=== PATIENT | male | born 1960 | race Caucasian/White ===

== ENCOUNTER 2020-06-16 16:17 | Emergency (ER) | payer OTHER ==
[2020-06-16 16:31] VITALS: BP 129/94; PULSE 78; TEMP 98.1; BMI 29.8
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
[2020-06-16] MEDS ORDERED: IBUPROFEN 400 MG TABLET (FP) PO ONE ×2 (18:17→18:25)
== END 2020-06-16 18:57 | disposition home or self-care (01) ==
LOC: JER 16:17 → JERFT 16:17
DX: G44.319 Acute post-traumatic headache, not intractable (principal); S43.402A Unspecified sprain of left shoulder joint, initial encounter; S83.92XA Sprain of unspecified site of left knee, initial encounter; S80.212A Abrasion, left knee, initial encounter
CPT/HCPCS: 70450-TC; 73030-TC-LT-FY; 73562-TC-LT-FY; 99285-25